=== PATIENT | female | born 1950 | race Hispanic/Latino ===

== ENCOUNTER → 2021-03-30 | Outpatient (CLI) | payer MEDICARE ==
[~2021-03-30] MED LIST: GLIMEPIRIDE2 MG PO; KETOCONAZOLE15 GM; LEVOTHYROXINE75 MCG PO; LISINOPRIL10 MG PO; TERBINAFINE HC250 MG PO; TYLENOL PO
== END ==
LOC: RAD 15:50
PROVIDERS: ATTEND Internal Medicine
DX: M54.2 Cervicalgia (principal)
CPT/HCPCS: 72050

== ENCOUNTER 2021-04-21 13:31 | Emergency (ER) | payer MEDICARE ==
[~2021-04-21] VITALS: Ht 152.4 cm; Wt 70.3 kg
[2021-04-21] MEDS ORDERED: SODIUM CHLORIDE 0.9% 1000ML 1,000 ML IV STA (14:11)
[2021-04-21] MEDS ORDERED: FAMOTIDINE 20 MG/2 ML VIAL IV STA (14:11)
[2021-04-21] MEDS ORDERED: DONNATAL/LIDOCAINE/MAALOX 30 ML SUSP PO ONE (14:15)
[2021-04-21] MEDS ORDERED: METOCLOPRAMIDE HCL 10 MG/2ML VIAL IV ONE (14:15)
[2021-04-21] MEDS ORDERED: LIDOCAINE VISC 2% SOLN 15 ML UDC ONE (14:51)
[2021-04-21] MEDS ORDERED: SODIUM CHLORIDE 0.9% 1000ML 1,000 ML ONE (14:52)
[2021-04-21] MEDS ORDERED: BELLADONNA ALK/PHENOBARBITAL 5 ML UDC ONE (14:52)
[2021-04-21] MEDS ORDERED: MAGNESIUM/ALUMINUM/SIMETHICONE 30 ML UDC ONE (14:52)
[2021-04-21] MEDS ORDERED: METOCLOPRAMIDE HCL 10 MG/2ML VIAL ONE (14:52)
[2021-04-21] MEDS ORDERED: FAMOTIDINE 20 MG/2 ML VIAL IV ONE (14:52)
[2021-04-21] MEDS ORDERED: NAPROSYN500 MG PO (15:13)
[2021-04-21] MEDS ORDERED: ZOFRAN4 MG PO (15:13)
[2021-04-21] MEDS ORDERED: AMLODIPINE BESYL5 MG PO (15:13)
[2021-04-21] MEDS ORDERED: EUTHYROX100 MCG (15:13)
[2021-04-21] MEDS ORDERED: OMEPRAZOLE40 MG PO (15:13)
[2021-04-21] MEDS ORDERED: ALENDRONATE SOD70 MG (15:13)
[2021-04-21] MEDS ORDERED: MECLIZINE HCL12.5 MG PO (15:13)
[2021-04-21] MEDS ORDERED: PROMETHAZINE HC25 M1 PO (15:13)
[2021-04-21] MEDS ORDERED: CYMBALTA30 MG (15:13)
[2021-04-21] MEDS ORDERED: TIZANIDINE HCL4 M1 PO (15:13)
[2021-04-21] MEDS ORDERED: CEPHALEXIN500 MG PO (16:51)
[2021-04-21] MEDS ORDERED: REGLAN10 MG PO (16:51)
[2021-04-21] MEDS ORDERED: PEPCID20 MG PO (16:51)
[2021-04-27] MEDS ORDERED: FAMOTIDINE20 MG PO (08:38)
== END 2021-04-21 17:07 | disposition home or self-care (01) ==
LOC: FSED 13:37
DX: R42 Dizziness and giddiness (principal); R51.9 Headache, unspecified; R11.2 Nausea with vomiting, unspecified; N39.0 Urinary tract infection, site not specified; I10 Essential (primary) hypertension; E11.9 Type 2 diabetes mellitus without complications; E03.9 Hypothyroidism, unspecified; M81.0 Age-related osteoporosis without current pathological fracture; Z79.84 Long term (current) use of oral hypoglycemic drugs; Z79.899 Other long term (current) drug therapy
CPT/HCPCS: 70450; 80053; 81003; 85025; 87086; 93005; 96374; 96375; 99284; J2765; J7030

== ENCOUNTER → 2021-04-28 | Day surgery (SDC) | payer MEDICARE ==
[~2021-04-28] MED LIST changes: +ALENDRONATE SOD70 MG; +AMLODIPINE BESYL5 MG PO; +CEPHALEXIN500 MG PO; +CYMBALTA30 MG; +EUTHYROX100 MCG; +FAMOTIDINE20 MG PO; +LIDOCAINE HCL 2% LOCAL INJ 5 ML SDV VIAL INJ ONE; +MECLIZINE HCL12.5 MG PO; +METOCLOPRAMIDE HCL 10 MG/2ML VIAL ONE; +NAPROSYN500 MG PO; +OMEPRAZOLE40 MG PO; +PEPCID20 MG PO; +POVIDONE IODINE 0.05% 0.05 % ML PO ONE; +PROMETHAZINE HC25 M1 PO; +PROPOFOL IV EMULSION 10 MG/ML 20 ML VIAL ONE; +REGLAN10 MG PO; +TIZANIDINE HCL4 M1 PO; +ZOFRAN4 MG PO
[2021-04-28 08:40] VITALS: BP 127/80
== END | disposition home or self-care (01) ==
LOC: OR 06:37
PROVIDERS: ATTEND Internal Medicine Gastroenterology
DX: K22.2 Esophageal obstruction (principal); K29.50 Unspecified chronic gastritis without bleeding; K20.90 Esophagitis, unspecified without bleeding; K44.9 Diaphragmatic hernia without obstruction or gangrene; R63.4 Abnormal weight loss; K76.0 Fatty (change of) liver, not elsewhere classified; R73.03 Prediabetes; I10 Essential (primary) hypertension; E03.9 Hypothyroidism, unspecified; Z01.812 Encounter for preprocedural laboratory examination; Z20.822 Contact with and (suspected) exposure to COVID-19; Z79.899 Other long term (current) drug therapy; Z68.29 Body mass index [BMI] 29.0-29.9, adult; Z83.79 Family history of other diseases of the digestive system
CPT/HCPCS: 43239; 43450; 88305; 88312; 88342; C9113; J2001; J2704; J2765; U0002

== ENCOUNTER → 2021-05-12 | Outpatient (CLI) | payer MEDICARE ==
[~2021-05-12] MED LIST changes: -LIDOCAINE HCL 2% LOCAL INJ 5 ML SDV VIAL INJ ONE; -METOCLOPRAMIDE HCL 10 MG/2ML VIAL ONE; -POVIDONE IODINE 0.05% 0.05 % ML PO ONE; -PROPOFOL IV EMULSION 10 MG/ML 20 ML VIAL ONE
== END ==
LOC: DX 10:28
PROVIDERS: ATTEND Internal Medicine Gastroenterology
DX: R13.19 Other dysphagia (principal); K22.89 Other specified disease of esophagus; Z20.822 Contact with and (suspected) exposure to COVID-19
CPT/HCPCS: 74230; 92526; 92611; U0002

== ENCOUNTER 2022-02-02 09:34 | Emergency (ER) | payer MEDICARE ==
[~2022-02-02] VITALS: Ht 152.4 cm; Wt 70.3 kg
[2022-02-02 10:11] LABS: BASOPHILS % 0.5 % (0.0-1.0); EOSINOPHILS # (AUTO) 0.1 (0.0-0.4); EOSINOPHILS % 0.8 % (0.0-6.0); HEMATOCRIT 44.3 % (34.2-44.1); HEMOGLOBIN 13.8 g/dL (12.0-16.0); LYMPHOCYTES # (AUTO) 1.6 (1.0-3.2); LYMPHOCYTES % 20.7 % (18.0-39.1); MEAN CORPUSCULAR HEMOGLOBIN 30.4 pg (28-32); MEAN CORPUSCULAR HGB CONC 31.2 g/dL (31-35); MEAN CORPUSCULAR VOLUME 97.6 fL (81-99); MONOCYTES # (AUTO) 0.6 (0.2-0.8); NEUTROPHILS # (AUTO) 5.5 (2.1-6.9); PLATELET COUNT 207 x10e3/uL (140-360); RED BLOOD COUNT 4.54 x10e6/uL (3.6-5.1)
[2022-02-02 10:31] LABS: ALBUMIN/GLOBULIN RATIO 1.1 (0.8-2.0); ANION GAP 17.2 mmol/L (8-16); CALCIUM 9.8 mg/dL (8.4-10.2); CREATININE, SERUM 0.69 mg/dL (0.57-1.11); POTASSIUM 4.2 mmol/L (3.5-5.1)
[2022-02-02 10:33] LABS: CLARITY,URINE SL CLOUDY (CLEAR); COLOR,URINE YELLOW (YELLOW); KETONES,URINE NEGATIVE (NEGATIVE); LEUKOCYTE ESTERASE ,URINE NEGATIVE (NEGATIVE); NITRITE,URINE NEGATIVE (NEGATIVE); PROTEIN,URINE DIPSTICK NEGATIVE (NEGATIVE); URINE UROBILINOGEN 1 mg/dL (0.2 - 1)
[2022-02-02 10:46] LABS: INFLUENZAE A&B ANTIGEN (RAPID) NEGATIVE (NEGATIVE); RESPIRATORY SYNC. VIRUS NEGATIVE (NEGATIVE)
[2022-02-02] MEDS ORDERED: ONDANSETRON HCL INJ 2MG/ML 2ML 2 MG/ML VIAL IV NR (11:15)
[2022-02-02 11:20] LABS: BACTERIA,URINE FEW /HPF; EPITHELIAL CELLS,URINE FEW /LPF; RBC,URINE 0-5 /HPF (0-5); WBC,URINE (MAN) 0-5 /HPF (0-5)
[2022-02-02 11:22] LABS: PARTIAL THROMBOPLASTIN TIME 30.3 seconds (23.8-35.5); PROTHROMBIN TIME 14.1 seconds (11.9-14.5)
[2022-02-02 14:27] VITALS: BP 122/57
== END 2022-02-02 14:29 | disposition other institution (70) ==
LOC: ER 09:45
DX: T85.09XA Other mechanical complication of ventricular intracranial (communicating) shunt, initial encounter (principal); G91.9 Hydrocephalus, unspecified; R41.82 Altered mental status, unspecified; R11.2 Nausea with vomiting, unspecified; Z20.822 Contact with and (suspected) exposure to COVID-19
CPT/HCPCS: 36415; 70450; 75809; 80053; 81001; 83605; 84484; 85025; 85610; 85730; 87040; 87086; 87400; 87420; 93005; 99284; J0456; J0696; J7050; U0002

== ENCOUNTER 2024-05-22 23:01 | Emergency (ER) | payer MEDICARE ==
[~2024-05-22] VITALS: Ht 152.4 cm; Wt 65.8 kg
[~2024-05-22 23:01] MED LIST changes: -EUTHYROX100 MCG; +EUTHYROX100 MCG PO; +METAMUCIL FIBE3.4 GM PO; +METRONIDAZOLE500 MG PO; +ONDANSETRON ODT4 MG PO; +VITAMIN D350 MCG PO
[2024-05-22 23:08] VITALS: PULSE 78; RESP 20; TEMP 98.2
[2024-05-23] MEDS ORDERED: LACTULOSE20 GM/30 M PO (00:40)
[2024-05-23 00:42] VITALS: BP 112/64; PULSE 80; RESP 16; TEMP 98.1; O2SAT 99
== END 2024-05-23 00:52 | disposition home or self-care (01) ==
LOC: ER 23:10
DX: K59.00 Constipation, unspecified (principal); I10 Essential (primary) hypertension; E11.9 Type 2 diabetes mellitus without complications; E03.9 Hypothyroidism, unspecified; F41.9 Anxiety disorder, unspecified; K21.9 Gastro-esophageal reflux disease without esophagitis; M81.0 Age-related osteoporosis without current pathological fracture; F32.A Depression, unspecified; G91.9 Hydrocephalus, unspecified; Z98.2 Presence of cerebrospinal fluid drainage device; Z96.653 Presence of artificial knee joint, bilateral
CPT/HCPCS: 74019; 99283